=== PATIENT | female | born 1975 | race Asian ===

== ENCOUNTER 2017-01-12 03:30 | Inpatient (IN) | payer SELFPAY ==
[~2017-01-12] VITALS: Ht 160 cm; Wt 63.5 kg
[2017-01-12] MEDS ORDERED: PRENATAL VITAMI1 TA2 PO (04:19)
[2017-01-12] MEDS ORDERED: NALBUPHINE HYDROCHLORIDE 10 MG/ML VIAL IVP PRN (05:05)
[2017-01-12] MEDS ORDERED: PROMETHAZINE 25 MG/ML VIAL IVP PRN (05:05)
[2017-01-12] MEDS ORDERED: CARBOPROST 250 MCG/ML AMP IM PRN (05:05)
[2017-01-12] MEDS ORDERED: METHYLERGONOVINE 0.2 MG/ML AMP IM PRN (05:05)
[2017-01-12] MEDS ORDERED: AMPICILLIN 2,000 MG in NACL 0.9% MINI-BAG PLUS 100 ML IV SCH (05:05)
[2017-01-12 05:12] VITALS: BP 121/75
[2017-01-12] MEDS: LACTATED RINGERS 1,000 ML IV SCH ×3 (05:23→20:11)
[2017-01-12] MEDS ORDERED: TERBUTALINE 1 MG/ML VIAL SUBQ SCH (06:05)
[2017-01-12] MEDS ORDERED: AMPICILLIN 2,000 MG VIAL ONE (06:13)
[2017-01-12] MEDS ORDERED: TERBUTALINE 1 MG/ML VIAL SUBQ ONE (06:15)
[2017-01-12] MEDS ORDERED: AMPICILLIN 1,000 MG in NACL 0.9% MINI-BAG PLUS 50 ML IV SCH (08:00)
--- NOTE | 2017-01-12 08:15 | NUR ---
PATIENT HAS BEEN SCREENED AND CATEGORIZED LOW NUTRITION RISK. PATIENT WILL BE SEEN WITHIN 7 DAYS OF ADMISSION. 01/18/[address]
[2017-01-12] MEDS ORDERED: guaiFENesin 20 MG/ML UDC PO PRN (08:55)
[2017-01-12] MEDS ORDERED: BETAMETH ACET/BETAMETH NA PH 30 MG/5 ML VIAL IM SCH (09:00)
[2017-01-12] MEDS ORDERED: AMPICILLIN 1,000 MG VIAL ONE (10:01)
[2017-01-12] MEDS ORDERED: TERBUTALINE 2.5 MG TAB ONE ×3 (10:02→22:18)
[2017-01-12] MEDS: TERBUTALINE 2.5 MG TAB PO SCH ×3 (10:06→22:19)
[2017-01-12] MEDS ORDERED: BETAMETH ACET/BETAMETH NA PH 30 MG/5 ML VIAL IM ONE (16:15)
[2017-01-12] MEDS ORDERED: INFLUENZA VIRUS VACCINE QUAD 0.5 ML SYR IMVAC SCH (22:00)
[2017-01-13] MEDS: LACTATED RINGERS 1,000 ML IV SCH (03:06)
[2017-01-13] MEDS: TERBUTALINE 2.5 MG TAB PO SCH ×2 (04:18→09:52)
[2017-01-13] MEDS ORDERED: TERBUTALINE 2.5 MG TAB ONE ×2 (04:19→09:51)
== END 2017-01-13 11:40 | disposition home or self-care (01) | DRG 782 ==
LOC: EDBD 03:30 → MFCC 03:30
PROVIDERS: ADMIT Obstetrics & Gynecology; ATTEND Obstetrics & Gynecology
DX: O46.8X3 Other antepartum hemorrhage, third trimester (principal); O09.513 Supervision of elderly primigravida, third trimester; Z3A.36 36 weeks gestation of pregnancy

== ENCOUNTER 2017-01-22 10:10 | Inpatient (IN) | payer SELFPAY ==
[~2017-01-22] VITALS: Ht 160 cm; Wt 64.4 kg
[~2017-01-22 10:10] MED LIST: PRENATAL VITAMI1 TA2 PO
[2017-01-22] MEDS ORDERED: LACTATED RINGERS 1,000 ML IV SCH (10:30)
[2017-01-22] MEDS ORDERED: fentaNYL 0.05 MG/ML VIAL ONE (10:45)
[2017-01-22] MEDS ORDERED: MORPHINE PRES FREE 10 MG/10 ML AMP IV ONE (10:45)
[2017-01-22] MEDS ORDERED: OXYTOCIN 10 UNITS/ML VIAL ONE ×2 (10:48→11:12)
[2017-01-22] MEDS ORDERED: TRIAMCINOLONE 40 MG/ML 5ML VIAL ONE (10:48)
[2017-01-22] MEDS ORDERED: TRIMETHOBENZAMIDE 200 MG/2 ML SYR IM PRN (11:10)
[2017-01-22] MEDS ORDERED: METHYLERGONOVINE 0.2 MG/ML AMP IM PRN (11:10)
[2017-01-22] MEDS ORDERED: MEASLES, MUMPS, AND RUBELLA 1 VIAL SQVAC PRN (11:10)
[2017-01-22] MEDS ORDERED: BUPIVACAINE-MPF 0.75% 10 ML VIAL INJ ONE (11:12)
[2017-01-22] MEDS ORDERED: KETOROLAC 60 MG/2 ML VIAL IM PRN (11:30)
[2017-01-22] MEDS ORDERED: diphenhydrAMINE 50 MG/ML VIAL IVP PRN (11:30)
[2017-01-22] MEDS ORDERED: NALOXONE 0.4 MG/ML VIAL IVP PRN ×3 (11:30)
[2017-01-22] MEDS ORDERED: ONDANSETRON 4 MG/2 ML VIAL IVP PRN ×2 (11:30)
[2017-01-22] MEDS ORDERED: NALBUPHINE 10 MG/ML AMP IVP PRN (11:30)
[2017-01-22] MEDS ORDERED: OXYTOCIN 20 UNITS/LR PREMIX 1,000 ML IV ONE (12:40)
[2017-01-22] MEDS: DOCUSATE SOD/SENNA 50/8.6 MG 1 TAB PO SCH (21:00)
[2017-01-22] MEDS: OXYTOCIN 20 UNITS/LR PREMIX 1,000 ML IV SCH (21:54)
[2017-01-23] MEDS ORDERED: TEMAZEPAM 15 MG CAP PO PRN (05:00)
[2017-01-23] MEDS: OXYTOCIN 20 UNITS/LR PREMIX 1,000 ML IV SCH (05:02)
[2017-01-23] MEDS: IBUPROFEN 800 MG TAB PO PRN ×2 (05:50→17:11)
[2017-01-23] MEDS ORDERED: INFLUENZA VIRUS VACCINE QUAD 0.5 ML SYR IMVAC SCH (10:00)
[2017-01-23] MEDS: HYDROcodone/APAP 5/325 MG 1 TAB TAB PO PRN (10:27)
[2017-01-23] MEDS: oxyCODONE/APAP 5/325 MG 1 TAB TAB PO PRN (15:00)
[2017-01-23] MEDS: DOCUSATE SOD/SENNA 50/8.6 MG 1 TAB PO SCH (20:27)
[2017-01-23] MEDS: SIMETHICONE 80 MG TAB.CHEW PO PRN (20:28)
[2017-01-24] MEDS: IBUPROFEN 800 MG TAB PO PRN ×2 (06:27→16:31)
--- NOTE | 2017-01-24 08:24 | NUR ---
PATIENT HAS BEEN SCREENED AND CATEGORIZED LOW NUTRITION RISK. PATIENT WILL BE SEEN WITHIN 7 DAYS OF ADMISSION. 01/29/[address]
[2017-01-24] MEDS: HYDROcodone/APAP 5/325 MG 1 TAB TAB PO PRN (20:27)
[2017-01-24] MEDS: DOCUSATE SOD/SENNA 50/8.6 MG 1 TAB PO SCH (20:27)
[2017-01-25] MEDS: oxyCODONE/APAP 5/325 MG 1 TAB TAB PO PRN (04:16)
[2017-01-25] MEDS: HYDROcodone/APAP 5/325 MG 1 TAB TAB PO PRN (10:27)
[2017-01-25] MEDS: SIMETHICONE 80 MG TAB.CHEW PO PRN (10:27)
== END 2017-01-25 12:45 | disposition home or self-care (01) | DRG 765 ==
LOC: MLD 10:10 → MFCC 12:18
PROVIDERS: ADMIT Obstetrics & Gynecology; ATTEND Obstetrics & Gynecology
PROC: 10D00Z1 Extraction of Products of Conception, Low, Open Approach (ICD-10-PCS; principal; 2017-01-22 10:30)
DX: O34.211 Maternal care for low transverse scar from previous cesarean delivery (principal); O99.354 Diseases of the nervous system complicating childbirth; O26.833 Pregnancy related renal disease, third trimester; O46.93 Antepartum hemorrhage, unspecified, third trimester; O24.92 Unspecified diabetes mellitus in childbirth; N19 Unspecified kidney failure; O99.52 Diseases of the respiratory system complicating childbirth; J45.909 Unspecified asthma, uncomplicated; O99.62 Diseases of the digestive system complicating childbirth; K21.9 Gastro-esophageal reflux disease without esophagitis; O16.4 Unspecified maternal hypertension, complicating childbirth; G40.909 Epilepsy, unspecified, not intractable, without status epilepticus; F03.90 Unspecified dementia, unspecified severity, without behavioral disturbance, psychotic disturbance, mood disturbance, and anxiety; O99.344 Other mental disorders complicating childbirth; O99.02 Anemia complicating childbirth; D64.9 Anemia, unspecified; Z37.0 Single live birth; Z3A.37 37 weeks gestation of pregnancy; O09.523 Supervision of elderly multigravida, third trimester; Z83.3 Family history of diabetes mellitus; Z82.49 Family history of ischemic heart disease and other diseases of the circulatory system; Z28.21 Immunization not carried out because of patient refusal; O09.293 Supervision of pregnancy with other poor reproductive or obstetric history, third trimester